=== PATIENT | male | born 1975 | race Caucasian/White ===

== ENCOUNTER 2017-09-04 17:38 | Emergency (ER) | payer BC ==
--- NOTE | 2017-09-04 19:55 | UC ---
Throat Pain/Nasal [place]ard HPI - History of Current Complaint Stated Complaint: THROAT,[place],TIREDNESS Time Seen by Provider: 09/04/17 19:49 - Allergies/Home Medications Allergies/Adverse Reactions: Allergies Allergy/AdvReac Type Severity Reaction Status Date / Time No Known Allergies Allergy Verified 10/13/12 19:32 PMH/Surg Hx/FS Hx/Imm Hx - Surgical History Surgical History: None - Social History Alcohol Use: Occasionally Substance Use Type: None Discharge - Discharge Plan Referrals: Kristyn Alaniz MD [Primary Care Provider] -
[2017-09-04 20:12] VITALS: BP 150/99
[2017-09-04] MEDS ORDERED: Amoxicillin/Clavulanate TAB* 875 MG PO ONE (20:27)
[2017-09-04] MEDS ORDERED: predniSONE TAB* 20 MG PO ONE (20:27)
== END 2017-09-04 20:46 | disposition home or self-care (01) ==
LOC: UCCORT 17:38
DX: R07.0 Pain in throat (principal); R09.81 Nasal congestion; R59.1 Generalized enlarged lymph nodes; R53.83 Other fatigue
CPT/HCPCS: 87651; 99202; A9270-GY; G0463; J7512

== ENCOUNTER 2017-09-18 16:22 | Emergency (ER) | payer BC ==
[2017-09-18 16:40] VITALS: BP 146/83
--- NOTE | 2017-09-18 17:09 | UC ---
Respiratory Complaint HPI - HPI Summary HPI Summary: patient complaining of increased SOB and cough. was treated for strep 2 weeks ago - History of Current Complaint Chief Complaint: UCRespiratory Stated Complaint: CHEST CONGESTION,SORE THROAT Time Seen by Provider: 09/18/17 16:54 Hx Obtained From: Patient Onset/Duration: Sudden Onset Timing: Constant Severity Initially: Mild Severity Currently: Moderate Aggravating Factors: Exertion, Deep Breaths, Recumbent Position Alleviating Factors: Nothing Associated Signs And Symptoms: Positive: Dyspnea, Wheezing - Allergies/Home Medications Allergies/Adverse Reactions: Allergies Allergy/AdvReac Type Severity Reaction Status Date / Time No Known Allergies Allergy Verified 09/04/17 20:12 PMH/Surg Hx/FS Hx/Imm Hx Previously Healthy: Yes - Surgical History Surgical History: None - Family History Known Family History: Positive: None, Respiratory Disease - Social History Alcohol Use: Occasionally Substance Use Type: None Smoking Status (MU): Never Smoked Tobacco - Immunization History Most Recent Influenza Vaccination: none Review of Systems Constitutional: Negative Skin: Negative Eyes: Negative ENT: Negative Respiratory: Shortness Of Breath, Cough Cardiovascular: Negative Gastrointestinal: Negative Genitourinary: Negative Motor: Negative Neurovascular: Negative Musculoskeletal: Negative Neurological: Negative Psychological: Negative Is Patient Immunocompromised?: No All Other Systems Reviewed And Are Negative: Yes Physical Exam Triage Information Reviewed: Yes Appearance: Well-Nourished, Ill-Appearing, Pain Distress Vital Signs: Initial Vital Signs Temp 98.6 F 09/18/17 16:34 Pulse 81 09/18/17 16:34 Resp 18 09/18/17 16:34 BP 146/83 09/18/17 16:34 Pulse Ox 99 09/18/17 16:34 Vital Signs Reviewed: Yes Eye Exam: Normal Eyes: Positive: Conjunctiva Clear ENT Exam: Normal ENT: Positive: Hearing grossly normal, Pharynx normal Dental Exam: Normal Neck exam: Normal Neck: Positive: Supple, Nontender, No Lymphadenopathy Respiratory Exam: Normal Respiratory: Positive: No respiratory distress, No accessory muscle use, Decreased breath sounds, Crackles - lll, Wheezing - thorughout Cardiovascular Exam: Normal Cardiovascular: Positive: RRR, No Murmur, Pulses Normal Abdominal Exam: Normal Abdomen Description: Positive: Nontender, No Organomegaly, Soft Bowel Sounds: Positive: Present Musculoskeletal Exam: Normal Musculoskeletal: Positive: Strength Intact, ROM Intact, No Edema Neurological Exam: Normal Neurological: Positive: Alert, Muscle Tone Normal Psychological Exam: Normal Skin Exam: Normal UC Diagnostic Evaluation - Laboratory O2 Sat by Pulse Oximetry: 99 Respiratory Course/Dx - Course Course Of Treatment: hx obtained, exam performed ,meds reviewed, chest xray obtained positive for left lobe atelectasis, duo neb given educated on incentiv spirometer use. - Differential Dx/Diagnosis Differential Diagnosis/HQI/PQRI: Asthma, Bronchitis, Laryngitis, Sinusitis Provider Diagnoses: cough, left lobe atelectasis Discharge - Discharge Plan Condition: Stable Disposition: HOME Patient Education Materials: Atelectasis (ED) Referrals: Kristyn Alaniz MD [Primary Care Provider] - Additional Instructions: 1. use the incentive spirometer 5 times a day for the next week, 2. Prednisone ddaily for the next week 3. FOllow up with any worsening symtpoms
--- NOTE | 2017-09-18 17:38 | RAD ---
Indication: Back pain, shortness of breath. 2 views of the chest including dual energy PA views are reviewed. There is cardiomegaly noted. There is volume loss in the right middle lobe with poor inspiration. This may represent atelectasis although pneumonia in the right middle lobe is not excluded. Left lung field is clear. No prior study is available for comparison. IMPRESSION: Increased density in the right base may represent right middle lobe atelectasis. Left lung field is clear.
[2017-09-18] MEDS ORDERED: Albuterol/Ipratropium NEB.SOL* Albuterol 2.5 MG/Ipratropium 0.5 MG 3 ML INH ONE (17:43)
== END 2017-09-18 18:05 | disposition home or self-care (01) ==
LOC: UCCORT 16:22
DX: J98.11 Atelectasis (principal); R05 Cough; J02.9 Acute pharyngitis, unspecified
CPT/HCPCS: 71046; 99212; A9270-GY; G0463